=== PATIENT | female | born 1935 | race Caucasian/White ===

== ENCOUNTER 2023-07-09 14:43 | Inpatient (IN) | payer MEDICARE, OTHER ==
[2023-07-09] MEDS ORDERED: HYDROmorphone 0.5 MG/0.5 ML Syringe IVPUSH ONE (15:23)
[2023-07-09 15:49] LABS: BASOPHILS PERCENT AUTO 0.1 % (0.0-1.0); EOSINOPHILS ABSOLUTE AUTO 0.1 K/mm3 (0.0-0.4); EOSINOPHILS PERCENT AUTO 0.8 % (0.0-6.0); HEMATOCRIT 37.2 % (37.0-47.0); HEMOGLOBIN 11.6 gm/dl (12.0-16.0); IMMATURE GRAN ABSOLUTE AUTO 0.07 K/mm3 (0.00-0.05); IMMATURE GRAN PERCENT AUTO 0.5 % (0.0-0.4); LYMPHOCYTES ABSOLUTE AUTO 1.7 K/mm3 (1.0-4.8); MEAN CORPUSCULAR HEMOGLOBIN 26.5 pg (28.0-32.0); MEAN CORPUSCULAR HGB CONC 31.2 g/dl (32.0-36.0); MEAN CORPUSCULAR VOLUME 84.9 fl (83.0-99.0); MEAN PLATELET VOLUME 9.5 fl (9.4-12.3); MONOCYTES ABSOLUTE AUTO 0.9 K/mm3 (0.0-0.8); MONOCYTES PERCENT AUTO 6.4 % (0.0-8.0); NEUTROPHILS ABSOLUTE AUTO 11.4 K/mm3 (1.8-7.7); NEUTROPHILS PERCENT AUTO 80.2 % (41.0-71.0); NRBC ABSOLUTE 0.09 (0.00-0.02); NRBC PERCENT 0.6 % (0.0-0.2); PLATELET COUNT,PLT 372 K/mm3 (150-400); RED BLOOD CELL COUNT 4.38 M/mm3 (4.10-5.30); WHITE BLOOD CELL COUNT,WBC 14.22 K/mm3 (3.9-11.3)
[2023-07-09 16:07] LABS: ALANINE AMINOTRANSFERASE,ALT 19 U/L (14-59); ALKALINE PHOSPHATASE 96 U/L (46-116); ANION GAP 10.3 (5-15); ASPARTATE AMNIOTRANSFERASE,AST 18 U/L (15-37); BILIRUBIN TOTAL 0.4 mg/dL (0.2-1.0); BLOOD UREA NITROGEN,BUN 30 mg/dL (7-18); BUN/CREATININE RATIO 33.3 (14-18); C-REACTIVE PROTEIN 1.5 mg/dL (<1.0); CALCIUM 8.5 mg/dL (8.5-10.1); CARBON DIOXIDE,CO2 31 mEq/L (21-32); CHLORIDE,CL 96 mEq/L (98-107); CREATININE 0.9 mg/dL (0.55-1.02); ESTIMATED GFR 62 mL/min (>60); GLUCOSE RANDOM 152 mg/dL (70-99); PROTEIN TOTAL,TP 6.1 g/dl (6.4-8.2); SODIUM,NA 135 mEq/L (136-145)
[2023-07-09 16:13] LABS: POTASSIUM,K 2.3 mEq/L (3.5-5.1)
[2023-07-09] MEDS ORDERED: Sodium Chloride 0.9% 1,000 ML IV ONE (16:14)
[2023-07-09] MEDS ORDERED: Potassium Chloride 20 MEQ Tab.ER PO ONE (16:14)
[2023-07-09 16:35] LABS: APPEARANCE,URINE CLEAR (Clear); BILIRUBIN,URINE NEGATIVE (Negative); COLOR,URINE YELLOW (Yellow); GLUCOSE,URINE NEGATIVE (Negative); KETONES,URINE NEGATIVE (Negative); LEUKOCYTE ESTERASE,URINE NEGATIVE (Negative); NITRITE,URINE NEGATIVE (Negative); OCCULT BLOOD,URINE NEGATIVE (Negative); PROTEIN,URINE TRACE (Negative); UROBILINOGEN,URINE 0.2 (0.2-1.0)
[2023-07-09] MEDS: Potassium Chloride 10 MEQ in Premix Bag 1 BAG IV SCH ×4 (16:40→22:17)
[2023-07-09 16:53] LABS: RBC,URINE 0-5 /hpf (0-5)
[2023-07-09 16:54] LABS: BACTERIA,URINE MODERATE /hpf (FEW); MUCUS,URINE MODERATE /hpf (FEW)
[2023-07-09] MEDS ORDERED: Ondansetron 4 MG/2 ML SDV IV PRN (18:36)
[2023-07-09] MEDS ORDERED: Polyethylene Glycol 3350 Powder 17 GM Packet PO PRN (18:36)
[2023-07-09] MEDS ORDERED: Acetaminophen 325 MG Tab PO PRN (18:36)
[2023-07-09] MEDS ORDERED: Docusate Sodium 100 MG Cap PO PRN (18:36)
[2023-07-09] MEDS ORDERED: Ondansetron 4 MG Tab.DIS PO PRN (18:36)
[2023-07-09] MEDS ORDERED: traMADol 50 MG Tab PO PRN (18:38)
[2023-07-09] MEDS ORDERED: Lactated Ringers 1,000 ML IV SCH (18:45)
[2023-07-09] MEDS ORDERED: Levofloxacin 500 MG Tab PO SCH (19:00)
[2023-07-09] MEDS ORDERED: hydrALAZINE 20 MG/ML SDV IVPUSH PRN (22:03)
[2023-07-09] MEDS: Acetaminophen/oxyCODONE 325-5 MG Tab PO PRN (22:15)
[2023-07-09] MEDS: Dexamethasone 4 MG Tab PO SCH (22:15)
[2023-07-10] MEDS: Potassium Chloride 10 MEQ in Premix Bag 1 BAG IV SCH ×6 (00:33→04:11)
[2023-07-10] MEDS: Dexamethasone 4 MG Tab PO SCH ×3 (00:34→08:31)
[2023-07-10] MEDS: Heparin Sodium 5,000 Units/ML Vial SUBCUT SCH ×4 (00:35→09:52)
[2023-07-10] MEDS ORDERED: Potassium Chloride 20 MEQ Tab.ER PO ONE (02:45)
[2023-07-10] MEDS ORDERED: Potassium Chloride 10 MEQ in Premix Bag 1 BAG IV SCH (04:45)
[2023-07-10 07:18] LABS: BASOPHILS PERCENT AUTO 0.1 % (0.0-1.0); EOSINOPHILS PERCENT AUTO 0.1 % (0.0-6.0); HEMATOCRIT 40.4 % (37.0-47.0); HEMOGLOBIN 12.6 gm/dl (12.0-16.0); IMMATURE GRAN PERCENT AUTO 0.7 % (0.0-0.4); LYMPHOCYTES ABSOLUTE AUTO 1.4 K/mm3 (1.0-4.8); LYMPHOCYTES PERCENT AUTO 9.5 % (24.0-44.0); MEAN CORPUSCULAR HEMOGLOBIN 26.1 pg (28.0-32.0); MEAN CORPUSCULAR HGB CONC 31.2 g/dl (32.0-36.0); MEAN CORPUSCULAR VOLUME 83.6 fl (83.0-99.0); MEAN PLATELET VOLUME 9.5 fl (9.4-12.3); MONOCYTES ABSOLUTE AUTO 0.2 K/mm3 (0.0-0.8); MONOCYTES PERCENT AUTO 1.5 % (0.0-8.0); NEUTROPHILS ABSOLUTE AUTO 12.6 K/mm3 (1.8-7.7); NEUTROPHILS PERCENT AUTO 88.1 % (41.0-71.0); NRBC ABSOLUTE 0.05 (0.00-0.02); NRBC PERCENT 0.3 % (0.0-0.2); PLATELET COUNT,PLT 442 K/mm3 (150-400); RED BLOOD CELL COUNT 4.83 M/mm3 (4.10-5.30); WHITE BLOOD CELL COUNT,WBC 14.34 K/mm3 (3.9-11.3)
[2023-07-10 07:33] LABS: BUN/CREATININE RATIO 21.3 (14-18); CREATININE 0.8 mg/dL (0.55-1.02); EST CRCL DRUG DOSING (CG) 36.26 mL/min
[2023-07-10 07:48] LABS: ANION GAP 15.1 (5-15)
[2023-07-10 07:49] LABS: POTASSIUM,K 5.1 mEq/L (3.5-5.1)
[2023-07-10] MEDS: Acetaminophen/oxyCODONE 325-5 MG Tab PO PRN ×2 (07:49→17:06)
[2023-07-10] MEDS ORDERED: Sodium Chloride 0.9% 1,000 ML IV SCH (08:15)
[2023-07-10] MEDS ORDERED: LORazepam 1 MG Tab PO ONE (09:00)
[2023-07-10] MEDS ORDERED: Lidocaine 4% 1 each Patch TOP SCH (09:15)
[2023-07-10] MEDS ORDERED: Magnesium Sulfate/Water 2 GM in Premix Bag 1 BAG IV ONE (09:30)
[2023-07-10] MEDS ORDERED: Levofloxacin 500 MG Tab PO ONE (21:00)
[2023-07-10] MEDS ORDERED: Donepezil 10 MG Tab PO SCH ×2 (21:00)
[2023-07-11] MEDS ORDERED: VALSARTAN 80 MG PO SCH ×2 (09:00)
[2023-07-11] MEDS ORDERED: Non-Formulary Medication 1 Each (Omeprazole 20 MG Cap.Cr) PO SCH ×2 (09:00)
[2023-07-11] MEDS ORDERED: Levofloxacin 250 MG Tab PO SCH (21:00)
== END 2023-07-10 17:34 | DRG 543 ==
LOC: JD.ED 14:43 → INTOOBSV 18:36 → JD.MS 18:36 → OBSVTOIN 18:36 → UNDODISOB 07-10 17:34
PROVIDERS: ADMIT Hospitalist; ATTEND Hospitalist
DX: M48.56XA Collapsed vertebra, not elsewhere classified, lumbar region, initial encounter for fracture (principal); E87.1 Hypo-osmolality and hyponatremia; R32 Unspecified urinary incontinence; M54.50 Low back pain, unspecified; E87.6 Hypokalemia; E83.42 Hypomagnesemia; G89.29 Other chronic pain; M48.061 Spinal stenosis, lumbar region without neurogenic claudication; E87.8 Other disorders of electrolyte and fluid balance, not elsewhere classified; I10 Essential (primary) hypertension; F03.90 Unspecified dementia, unspecified severity, without behavioral disturbance, psychotic disturbance, mood disturbance, and anxiety; Z91.030 Bee allergy status; Z79.899 Other long term (current) drug therapy; Z88.0 Allergy status to penicillin
CPT/HCPCS: 36415; 72131; 72131-26; 72148; 72148-26; 80048; 80053; 81001; 83735; 84145; 85025; 86140; 87086; 96374; 97162-GP; 97530-GP; 99222; 99239; 99284; 99285-25; A9270-GY; J0360; J1170; J1644; J3475; J3480; J7030; J7120; J8540